=== PATIENT | female | born 1995 | race Caucasian/White ===

== ENCOUNTER 2019-01-04 20:58 | Emergency (ER) | payer OTHER, SELFPAY ==
[2019-01-04 21:10] VITALS: BP 139/88; PULSE 114; RESP 15; TEMP 36.8; O2SAT 94; BMI 63.1
--- NOTE | 2019-01-04 21:32 | ED.HEATRA ---
HPI - Head Injury General Chief complaint: Head Injury Stated complaint: HEAD INJURY Time Seen by Provider: 01/04/19 21:32 Source: patient Mode of arrival: ambulatory Limitations: no limitations History of Present Illness HPI Narrative: 23-year-old female here for evaluation of head injury. She states that several hours prior to arrival she was getting in her car and hit the right side of her head on the top of the car. No loss of consciousness. She states that since the incident she has had decreased hearing in the right ear. Also had some runny nose. Denies any other sinus congestion. No vision changes. Has had a headache. No balance issues. Related Data Allergies Allergy/AdvReac Type Severity Reaction Status Date / Time amoxicillin [AMOXICILLIN] Allergy Unknown Unverified 11/16/17 12:51 NSAIDS (Non-Steroidal Allergy Unknown Unverified 11/16/17 12:51 Anti-Inflamma [NSAIDS (NON-STEROIDAL ANTI-INFLAMMA] Penicillins [PENICILLINS] Allergy Unknown Unverified 11/16/17 12:51 Sulfa (Sulfonamide Allergy Unknown Unverified 11/16/17 12:51 Antibiotics) [SULFA (SULFONAMIDE ANTIBIOTICS)] acetaminophen [From Vicodin] Allergy Verified 01/04/19 21:12 hydrocodone [From Vicodin] Allergy Verified 01/04/19 21:12 oxycodone [From Percocet] Allergy Verified 01/04/19 21:12 Review of Systems Constitutional Denies fever(s) and Reports headache(s) ENT Ears, Nose, Mouth, and Throat: Denies vertigo, Denies dizziness, Reports headache(s) and Denies disequilibrium Comments: Decreased hearing in the right ear Cardiovascular Denies chest pain and Denies dyspnea Respiratory Denies dyspnea Musculoskeletal Denies myalgias and Denies arthralgias Integumentary/Breasts Denies rash Neurologic Denies confusion, Denies vertigo, Denies dizziness, Reports headache(s) and Denies disequilibrium Psychiatric Denies confusion Hematologic/Lymphatic Denies easy bleeding and Denies easy bruising [facility] Medical History Hearing loss (Acute) Social History Smoking Status: Unknown if ever smoked Social History Smoking Status: Unknown if ever smoked Exam Initial Vital Signs Initial Vital Signs: Vital Signs Temperature 98.2 F 01/04/19 21:10 Pulse Rate 114 H 01/04/19 21:10 Respiratory Rate 15 01/04/19 21:10 Blood Pressure 139/88 01/04/19 21:10 Pulse Oximetry 94 01/04/19 21:10 Const General: cooperative, well developed, well groomed and No acute distress Orientation: alert, awake and oriented x3 HENMT Head: normal to inspection, normocephalic and atraumatic Ears: TM normal on the left and TM abnormal bulging on the right; not with effusion and not erythematous Nose: external nose normal Face and sinus: normal facial exam Mouth: oral mucosae normal Eyes Pupils: PERRL EOM: EOM intact bilaterally Resp Effort & Inspection: normal respiratory effort Auscultation: clear to auscultation bilaterally Cardio Rate: regular rate Rhythm: regular rhythm Skin Lesions: no lesions Rashes: no rashes Neuro General: alert, awake and oriented x3 Cranial Nerves: CN's II-XI intact bilaterally Cognition: normal cognition Speech: speech normal Extrem General: normal to inspection and capillary refill normal Scores GCS Dwayne coma scale eye opening: Spontaneous Dwayne coma scale verbal response: Orientated Dwayne coma scale motor response: Obey commands Dwayne coma scale total score: 15 Nexus Score for C-Spine Focal Neurologic deficit present: No Midline spinal tenderness present: No Altered level of conciousness present: No Intoxication present: No Distracting Injury Present: No Nexus Criteria for C-spine: 0 Course Vital Signs - 8 hr 01/04/19 21:10 Temperature 98.2 F Pulse Rate 114 H Respiratory Rate 15 Blood Pressure 139/88 Pulse Oximetry 94 MDM - Head Injury MDM Narrative Medical decision making narrative: Normal neurologic exam. No signs of depressed skull fracture. Does have fluid behind the right ear but it is not bloody. Low suspicion for basilar skull fracture. No indication for CT scan. GCS 15. Discussed all this with the patient. We did discuss return precautions and follow-up instructions. She expressed understanding and agreement with plan. Discharge Plan Departure Patient Disposition: Home Clinical Impression: Closed head injury Qualifiers: Encounter type: initial encounter Qualified Code(s): S09.90XA - Unspecified injury of head, initial encounter Concussion without loss of consciousness Qualifiers: Encounter type: initial encounter Qualified Code(s): S06.0X0A - Concussion without loss of consciousness, initial encounter Discharge Date/Time: 01/04/19 22:02 Interventions: ED Discharge Assessment Last Done: 01/04/19 22:02 Instructions: Concussion, DI for Closed Head Injury Activity Restrictions/Additional Instructions: You do need to contact your primary care doctor for a follow-up. You have no restrictions in your activity except avoiding activities that make any symptoms worse. Return to the emergency department for any new or worsening symptoms.
== END 2019-01-04 22:02 | disposition home or self-care (01) ==
PROVIDERS: Emergency Provider Emergency Medicine
DX: S06.0X0A Concussion without loss of consciousness, initial encounter (principal); W22.8XXA Striking against or struck by other objects, initial encounter
CPT/HCPCS: 99282